=== PATIENT | female | born 1945 | race American Indian/Alaskan Native ===

== ENCOUNTER 2017-03-08 08:33 | Emergency (ER) | payer MEDICARE ==
[2017-03-08 08:46] VITALS: BMI 36.1
[2017-03-08 08:47] VITALS: RESP 18; TEMP 98.7
--- NOTE | 2017-03-08 09:07 | ED PDOC ---
Arrival/HPI - General Chief Complaint: Allergic Reaction Time Seen by Provider: 03/08/17 08:56 Historian: Patient - History of Present Illness Narrative History of Present Illness (Text): 03/08/17 09:00 Kristina Redmond is a 71 year old female, whose past medical history include hypertension and hypothyroidism, who presents to the emergency department complaining of a possible allergic reaction to her face since two weeks ago. Patient reports on 02/20/2017 using her typical makeup but causing minor bumps on her face. She decided to take Zrtec and washing her face with water mixed with baking soda and there was no significant relief. Patient reports it gradually became worse and today woke up with swelling on her mid face and around her eyes with persistent itching. patient denies using any new detergents , creams, soaps, perfume, or make up. Patient denies chest pain, shortness of breath, headache, fever, chills, cough, nausea, vomiting, diarrhea, abdominal pain, dizziness or lightheadedness. pt denied vision changes, neck pain pt is here for further eval pt's without other complaints PMD: Dr. Samuel 03/10/17 14:39 Time/Duration: > week (2 weeks) Symptom Onset: Gradual Symptom Course: Worsening Activities at Onset: Rest Context: Home Past Medical History - Provider Review Nursing Documentation Reviewed: Yes - Travel History Have you recently traveled outside [place] w/in the past 3 mons?: No - Infectious Disease Hx of Infectious Diseases: None - Tetanus Immunization Tetanus Immunization: Unknown - Reproductive Menopause: Yes - Cardiac Hx Hypertension: Yes Hx Pacemaker: No - Neurological Hx Paralysis: No - Endocrine/Metabolic Hx Hypothyroidism: Yes - Hematological/Oncological Hx Blood Transfusions: No Hx Blood Transfusion Reaction: No - Musculoskeletal/Rheumatological Hx Arthritis: Yes - Psychiatric Hx Emotional Abuse: No Hx Physical Abuse: No Hx Substance Use: No - Surgical History Hx Orthopedic Surgery: Yes - Anesthesia Hx Anesthesia Reactions: No Hx Malignant Hyperthermia: No - Suicidal Assessment Feels Threatened In Home Enviroment: No Family/Social History - Physician Review Nursing Documentation Reviewed: Yes Family/Social History: Unknown Family HX Smoking Status: Never Smoked Hx Alcohol Use: Yes (WINE ON OCCASION) Hx Substance Use: No Hx Substance Use Treatment: No Allergies/Home Meds Allergies/Adverse Reactions: Allergies codeine Adverse Reaction (Intermediate, Verified 01/06/16 14:08) GAS Home Medications: Home Meds Medication Instructions Recorded Confirmed Levothyroxine [Levothyroxine] 150 mcg PO QAM 12/17/12 01/06/16 Amlodipine Besylate [Norvasc] 5 mg PO QAM 07/21/15 01/06/16 Omeprazole [Prilosec] 40 mg PO QAM 07/22/15 01/06/16 Polyethylene Glycol 3350 [Miralax] 17 gm PO PRN PRN 07/22/15 01/06/16 Review of Systems - Review of Systems Constitutional: absent: Fevers Eyes: Other (swelling ). absent: Vision Changes Respiratory: absent: SOB, Cough Cardiovascular: absent: Chest Pain Gastrointestinal: absent: Abdominal Pain, Vomiting Genitourinary Female: absent: Dysuria Skin: Rash (rashes on face) Physical Exam Vital Signs Reviewed: Yes (WNL) Vital Signs Temp Pulse Resp BP Pulse Ox 03/08/17 10:33 56 L 18 123/94 H 98 03/08/17 08:33 98.7 F 73 18 145/85 96 Temperature: Afebrile Blood Pressure: Normal Pulse: Regular Respiratory Rate: Normal Appearance: Positive for: Well-Appearing, Non-Toxic, Other (uncomfortable, resting in bed, alert/awake, GCS = 15, oriented x 3; mild distress due to facial rash) Pain Distress: Mild Mental Status: Positive for: Alert and Oriented X 3 - Systems Exam Head: Present: Atraumatic, Normocephalic Pupils: Present: PERRL, Other (mild ngozi-orbital swelling/edema noted, no skin erythema noted, + mid facial skin erythema with maculpapular lesions/non- flucutant, no ulcerations/petechiae/lesions, no nikosky's sign noted) Extroacular Muscles: Present: EOMI, Other (visual field intact b/l) Conjunctiva: Present: Normal Ears: Present: Normal Mouth: Present: Moist Mucous Membranes, Normal Teeth, Other (uvula/tongue are midline, no exudate/lesions, no drooling/stridor) Pharnyx: Present: Normal, Other (no dysphonia noted) Nose (External): Present: Atraumatic Neck: Present: Normal Range of Motion, Trachea Midline, Other (intact ROM, no midline tenderness, no nuchal rigidity, no meningeal signs). No: MIDLINE TENDERNESS Respiratory/Chest: Present: Clear to Auscultation, Good Air Exchange. No: Respiratory Distress, Accessory Muscle Use Cardiovascular: Present: Regular Rate and Rhythm, Normal S1, S2. No: Murmurs Abdomen: Present: Normal Bowel Sounds. No: Tenderness, Distention, Peritoneal Signs Back: Present: Normal Inspection Upper Extremity: Present: Normal Inspection, NORMAL PULSES, Neurovascularly Intact, Capillary Refill < 2s. No: Cyanosis, Edema Lower Extremity: Present: Normal Inspection, NORMAL PULSES, Normal ROM, Neurovascularly Intact, Capillary Refill < 2 s. No: Edema Neurological: Present: GCS=15, CN II-XII Intact, Speech Normal Skin: Present: Warm, Dry, Rashes (rashes on face with swelling ), Normal Color Psychiatric: Present: Alert, Oriented x 3, Normal Insight, Normal Concentration Medical Decision Making ED Course and Treatment: 03/08/17 Impression: 71 year old female with rashes on face and swelling. I have considered all Differential Diagnosis regarding pt's chief medical complaints/clinical findings included but are not limited to: allergic rxn vs. contact dermatitis. unlikely cellulitis, unlikely anaphylaxis Plan: -- Benadryl, Pepcid, Prednisone -- Reassess and disposition Progress Notes: 03/10/17 14:58 11:00 03/08/17 - pt without new complaints; no sob/wheezing/worsening pruritus pt is made aware of her medical results pt is encouraged no new foods/detergents/medication pt will f/u as directed pt will be discharged home 03/10/17 15:05 Re-evaluation Time: 11:00 Reassessment Condition: Improving,but remains with symptoms - Medication Orders Current Medication Orders: Discontinued Medications Diphenhydramine HCl (Benadryl) 50 mg PO STAT STA Stop: 03/08/17 09:02 Last Admin: 03/08/17 09:11 Dose: 50 mg Famotidine (Pepcid) 20 mg PO STAT STA Stop: 03/08/17 09:02 Last Admin: 03/08/17 09:11 Dose: 20 mg Prednisone (Prednisone Tab) 60 mg PO STAT ONE Stop: 03/08/17 09:03 Last Admin: 03/08/17 09:11 Dose: 60 mg - Scribe Statement The provider has reviewed the documentation as recorded by the Jai Regalado Provider Scribe Attestation: All medical record entries made by the Jai were at my direction and personally dictated by me. I have reviewed the chart and agree that the record accurately reflects my personal performance of the history, physical exam, medical decision making, and the department course for this patient. I have also personally directed, reviewed, and agree with the discharge instructions and disposition. Disposition/Present on Arrival - Present on Arrival Any Indicators Present on Arrival: No History of DVT/PE: No History of Uncontrolled Diabetes: No Urinary Catheter: No History of Decub. Ulcer: No History Surgical Site Infection Following: None - Disposition Have Diagnosis and Disposition been Completed?: Yes Diagnosis: Contact dermatitis Disposition: HOME/ ROUTINE Disposition Time: 10:19 Patient Plan: Discharge Condition: STABLE Discharge Instructions (ExitCare): Contact Dermatitis (ED) Print Language: MICRONESIAN Additional Instructions: Make sure to see your doctor in 1-2 days DRINK PLENTY OF FLUIDS AVOID new make ups to your face, DONT wash your face with baking soda AVOID new detergents/soaps/cleaning agents/clothing, etc. take your medications as prescribed RETURN TO ED IF worse pain, cant breath, severe wheezing, persistent vomiting, high fever >101-102 for hours, altered behavior, unable to urinate, heavy/ persistent bleeding, passing out, chest pain, or other medical emergencies Prescriptions: DiphenhydrAMINE [Benadryl] 25 mg PO Q6H #30 cap Prednisone 50 mg PO DAILY #4 tablet Referrals: PCP,NO [Non-Staff] - Follow up with primary Forms: [employer] (Togolese)
[2017-03-08 10:39] VITALS: BP 123/94; PULSE 56; O2SAT 98
== END 2017-03-08 10:40 | disposition home or self-care (01) ==
LOC: ED 08:33
DX: L25.9 Unspecified contact dermatitis, unspecified cause (principal)

== ENCOUNTER 2018-05-31 12:52 | Outpatient (CLI) | payer MEDICARE | END 2018-05-31 12:53 | disposition home or self-care (01) | LOC: RAD 12:52 ==